=== PATIENT | female | born 1965 | race Asian ===

== ENCOUNTER 2018-03-02 17:50 | Emergency (ER) | payer OTHER ==
[~2018-03-02] VITALS: Ht 157.5 cm; Wt 67.6 kg
[~2018-03-02 17:50] MED LIST: ALLO100T; PREMARIN; TELM20TA
[2018-03-02] MEDS ORDERED: KETOROLAC TROMETH 30 MG/ML 1ML VIAL IV ONE (20:00)
[2018-03-02 22:34] VITALS: BP 152/96
[2018-03-02] MEDS ORDERED: COLCHICINE 0.6 MG TAB PO ONE (22:45)
== END 2018-03-02 22:55 | disposition home or self-care (01) ==
LOC: ER 18:00
DX: M10.072 Idiopathic gout, left ankle and foot (principal); M10.071 Idiopathic gout, right ankle and foot
CPT/HCPCS: 36415; 84550; 96374; 99284; J1885